=== PATIENT | male | born 1960 | race Two or more races ===

== ENCOUNTER 2024-11-06 10:02 | Inpatient (IN) | payer MEDICAID, OTHER ==
[~2024-11-06] VITALS: Ht 180.3 cm; Wt 94.3 kg
[2024-11-06 10:06] VITALS: O2SAT 98
[2024-11-06 11:40] LABS: BASOPHILS % (AUTO) 0.4 % (0.0-2.0); EOSINOPHILS % (AUTO) 0.3 % (0.0-6.0); HEMATOCRIT 45 % (39-51); HEMOGLOBIN 15.2 g/dL (13.5-17.5); LYMPHOCYTES # (AUTO) 1.3 K/uL (0.8-4.8); LYMPHOCYTES % (AUTO) 14.3 % (20.0-44.0); MEAN CORPUSCULAR HEMOGLOBIN 30 PG (26.0-33.0); MEAN CORPUSCULAR HGB CONC 34 g/dl (31.0-36.0); MEAN CORPUSCULAR VOLUME 89 fL (80-96); MONOCYTES # (AUTO) 0.3 K/uL (0.1-1.30); MONOCYTES % (AUTO) 3.7 % (2.0-12.0); NEUTROPHILS # (AUTO) 7.5 K/uL (1.8-8.9); NEUTROPHILS % (AUTO) 81.3 % (43.0-81.0); PLATELET COUNT (AUTO) 203 K/uL (150-450); RED BLOOD CELL COUNT(AUTO) 5.01 MIL/uL (4.5-6.0); RED CELL DISTRIBUTION WIDTH 14.4 % (11.5-15.0); WHITE BLOOD COUNT (AUTO) 9.2 K/uL (4.3-11.0)
[2024-11-06] MEDS ORDERED: MORPHINE SULFATE INJ 4 MG/ML DISP.SYRIN ONE (11:45)
[2024-11-06] MEDS ORDERED: ONDANSETRON HCL/PF 4 MG/2 ML VIAL ONE (11:45)
[2024-11-06] MEDS: MORPHINE SULFATE INJ 2 MG/ML DISP.SYRIN IV ONE (12:00)
[2024-11-06] MEDS: ONDANSETRON HCL/PF 4 MG/2 ML VIAL IV ONE (12:00)
[2024-11-06 12:02] LABS: INR 1.03 (0.91-1.10); PARTIAL THROMBOPLASTIN TIME 22.5 SEC (24.3-34.3); PROTHROMBIN TIME 10.9 SECS (9.2-11.1)
[2024-11-06 12:56] LABS: CALCIUM, SERUM 9.5 mg/dL (8.5-10.1); CREATININE 1.5 mg/dL (0.6-1.3); POTASSIUM 3.9 mmol/L (3.5-5.1)
[2024-11-06] MEDS ORDERED: ACETAMINOPHEN 325 MG TABLET PO PRN (14:30)
[2024-11-06] MEDS ORDERED: DEXTROSE 50%-WATER 50 ML DISP.SYRIN IV PRN (14:30)
[2024-11-06] MEDS ORDERED: HYDROMORPHONE INJ SYRINGE 0.5 MG in IV D5W 50 ML IV PRN (14:30)
[2024-11-06] MEDS ORDERED: ONDANSETRON HCL/PF 4 MG/2 ML VIAL IV PRN (14:30)
[2024-11-06] MEDS ORDERED: ZOLPIDEM TARTRATE 5 MG TABLET PO PRN (14:30)
[2024-11-06] MEDS ORDERED: FENO145T21 PO (15:36)
[2024-11-06] MEDS ORDERED: METF-440 PO (15:36)
[2024-11-06] MEDS ORDERED: OMEP40CA21 PO (15:36)
[2024-11-06] MEDS ORDERED: LOSA1TAB42 PO (15:36)
[2024-11-06] MEDS ORDERED: COLC0.6T67 PO (15:36)
[2024-11-06] MEDS ORDERED: ASPI-1420 PO (15:36)
[2024-11-06] MEDS ORDERED: ATOR20TA PO (15:36)
[2024-11-06 16:00] VITALS: BP 114/83; TEMP 98.1; O2SAT 98
[2024-11-06] MEDS: IV 1/2NS 1000 ML 1,000 ML IV SCH (16:49)
[2024-11-06] MEDS: BLOOD SUGAR DIAGNOSTIC 1 EACH STRIP VI SCH (17:10)
[2024-11-06] MEDS: INSULIN REGULAR, HUMAN 100 UNIT/ML 3 ML VIAL SQ PRN (17:14)
[2024-11-06] MEDS: HYDROMORPHONE 1 MG/1 ML DISP.SYRIN IV PRN (17:26)
[2024-11-06] MEDS: HYDROCODONE/APAP 5/325MG TABLET PO PRN (19:53)
[2024-11-06] MEDS: *INSULIN REGULAR(HUMULIN R)HUM 100 UNIT/ML VIAL SQ PRN (23:03)
[2024-11-07 07:16] LABS: BASOPHILS % (AUTO) 0.3 % (0.0-2.0); EOSINOPHILS % (AUTO) 0.4 % (0.0-6.0); HEMATOCRIT 38 % (39-51); LYMPHOCYTES # (AUTO) 1.5 K/uL (0.8-4.8); LYMPHOCYTES % (AUTO) 19.6 % (20.0-44.0); MEAN CORPUSCULAR HEMOGLOBIN 30 PG (26.0-33.0); MEAN CORPUSCULAR HGB CONC 35 g/dl (31.0-36.0); MEAN CORPUSCULAR VOLUME 87 fL (80-96); MONOCYTES # (AUTO) 0.5 K/uL (0.1-1.30); MONOCYTES % (AUTO) 6.5 % (2.0-12.0); NEUTROPHILS # (AUTO) 5.7 K/uL (1.8-8.9); NEUTROPHILS % (AUTO) 73.2 % (43.0-81.0); PLATELET COUNT (AUTO) 198 K/uL (150-450); RED BLOOD CELL COUNT(AUTO) 4.33 MIL/uL (4.5-6.0); RED CELL DISTRIBUTION WIDTH 13.9 % (11.5-15.0); WHITE BLOOD COUNT (AUTO) 7.8 K/uL (4.3-11.0)
[2024-11-07 07:39] LABS: CALCIUM, SERUM 8.6 mg/dL (8.5-10.1); CREATININE 1.3 mg/dL (0.6-1.3); POTASSIUM 3.7 mmol/L (3.5-5.1)
[2024-11-07 08:00] VITALS: BP 148/91; TEMP 97.5; O2SAT 94
[2024-11-07] MEDS ORDERED: DEXTROSE 50%-WATER 50 ML DISP.SYRIN IV PRN (08:30)
[2024-11-07] MEDS ORDERED: POLYMYXIN B SULFATE 0 UNITS ONE (08:44)
[2024-11-07] MEDS ORDERED: VANCOMYCIN 1 GM VIAL ONE (08:45)
[2024-11-07] MEDS ORDERED: BUPIVACAINE 0.5 % PF 150 MG/30 ML VIAL ONE (08:45)
[2024-11-07] MEDS ORDERED: BUPIVACAINE 0.25% 75 MG/30 ML VIAL ONE (08:45)
[2024-11-07] MEDS ORDERED: ANESTHESIA TRAY IN PYXIS 1 EA TRAY MC ONE (08:45)
[2024-11-07] MEDS: FENOFIBRATE NANOCRYS (145 MG) 145 MG TABLET PO SCH (09:00)
[2024-11-07] MEDS: COLCHICINE 0.6 MG TABLET PO SCH (09:00)
[2024-11-07] MEDS: METFORMIN 500 MG TABLET PO SCH (09:00)
[2024-11-07] MEDS ORDERED: ROCURONIUM BROMIDE 50 MG/5 ML ONE (10:45)
[2024-11-07] MEDS ORDERED: FENTANYL PF 250MCG/5ML AMPUL ONE (10:45)
[2024-11-07] MEDS ORDERED: MIDAZOLAM HCL 2 MG/2ML VIAL ONE (10:45)
[2024-11-07] MEDS ORDERED: ROPIVACAINE HCL 0.5% 5 MG/ML 30ML VIAL ONE (12:30)
[2024-11-07] MEDS ORDERED: IV D5/0.45 NACL W/20 MEQ KCL 1L IV PRN (15:00)
[2024-11-07] MEDS: BLOOD SUGAR DIAGNOSTIC 1 EACH STRIP VI SCH (15:25)
[2024-11-07 16:00] VITALS: BP 154/82; TEMP 98.4; O2SAT 96
[2024-11-07] MEDS: HYDROCODONE/APAP 10/325MG TABLET PO PRN (17:26)
[2024-11-07] MEDS: ANCEF 1 GM/50 ML D5W IV SCH (19:06)
[2024-11-07 20:00] VITALS: BP 132/84; TEMP 98.2; O2SAT 97
[2024-11-07] MEDS: ATORVASTATIN 10 MG TABLET PO SCH (21:49)
[2024-11-07] MEDS: *INSULIN REGULAR(HUMULIN R)HUM 100 UNIT/ML VIAL SQ PRN (22:16)
[2024-11-08 06:40] LABS: BASOPHILS % (AUTO) 0.2 % (0.0-2.0); EOSINOPHILS % (AUTO) 0.2 % (0.0-6.0); HEMATOCRIT 31 % (39-51); HEMOGLOBIN 10.8 g/dL (13.5-17.5); LYMPHOCYTES # (AUTO) 1.5 K/uL (0.8-4.8); LYMPHOCYTES % (AUTO) 17.1 % (20.0-44.0); MEAN CORPUSCULAR HEMOGLOBIN 30 PG (26.0-33.0); MEAN CORPUSCULAR HGB CONC 35 g/dl (31.0-36.0); MEAN CORPUSCULAR VOLUME 87 fL (80-96); MONOCYTES # (AUTO) 0.8 K/uL (0.1-1.30); MONOCYTES % (AUTO) 9.7 % (2.0-12.0); NEUTROPHILS # (AUTO) 6.4 K/uL (1.8-8.9); NEUTROPHILS % (AUTO) 72.8 % (43.0-81.0); PLATELET COUNT (AUTO) 183 K/uL (150-450); RED BLOOD CELL COUNT(AUTO) 3.55 MIL/uL (4.5-6.0); RED CELL DISTRIBUTION WIDTH 14.2 % (11.5-15.0); WHITE BLOOD COUNT (AUTO) 8.7 K/uL (4.3-11.0)
[2024-11-08 06:58] LABS: CALCIUM, SERUM 7.9 mg/dL (8.5-10.1); CREATININE 1.5 mg/dL (0.6-1.3); POTASSIUM 3.8 mmol/L (3.5-5.1)
[2024-11-08] MEDS: INSULIN REGULAR, HUMAN 100 UNIT/ML 3 ML VIAL SQ PRN (07:33)
[2024-11-08 08:00] VITALS: BP 149/80; TEMP 98.2; O2SAT 94
[2024-11-08] MEDS: PANTOPRAZOLE 40 MG TABLET.DR PO SCH (08:13)
[2024-11-08] MEDS ORDERED: HYDR-4303 PO (08:19)
[2024-11-08] MEDS: MORPHINE SULFATE INJ 4 MG/ML DISP.SYRIN IV PRN (11:14)
== END 2024-11-08 15:45 | disposition home or self-care (01) | DRG 315 ==
LOC: ER 10:13 → MED 15:20
PROVIDERS: ADMIT Internal Medicine; ATTEND Internal Medicine
PROC: 0PSF04Z Reposition Right Humeral Shaft with Internal Fixation Device, Open Approach (ICD-10-PCS; principal; 2024-11-06)
PROC: 0PSH04Z Reposition Right Radius with Internal Fixation Device, Open Approach (ICD-10-PCS; 2024-11-06)
DX: S42.211A Unspecified displaced fracture of surgical neck of right humerus, initial encounter for closed fracture (principal); N17.9 Acute kidney failure, unspecified; E11.9 Type 2 diabetes mellitus without complications; S52.501A Unspecified fracture of the lower end of right radius, initial encounter for closed fracture; S52.611A Displaced fracture of right ulna styloid process, initial encounter for closed fracture; W11.XXXA Fall on and from ladder, initial encounter; Y92.9 Unspecified place or not applicable; Z95.5 Presence of coronary angioplasty implant and graft; I12.9 Hypertensive chronic kidney disease with stage 1 through stage 4 chronic kidney disease, or unspecified chronic kidney disease; N18.9 Chronic kidney disease, unspecified; E78.5 Hyperlipidemia, unspecified
CPT/HCPCS: 36415; 71045-TC; 73030-TC; 73060-TC; 73080-TC; 73100-TC; 73110; 80048-TC; 82962-TC; 85025-TC; 85730-TC; 86850-TC; 97116-TC; 97530-TC; A4223; G0378; J0690; J1171; J1815; J2250; J2270; J2405; J2704; J2795; J3010; J3370; J3480; J3490; J7030; J7060